=== PATIENT | male | born 1995 | race Caucasian/White ===

== ENCOUNTER 2019-10-11 11:18 | Emergency (ER) | payer BC ==
[2019-10-11 12:02] LABS: RAPID GROUP A STREP NEGATIVE (NEGATIVE)
== END 2019-10-11 12:51 | disposition home or self-care (01) ==
LOC: EDH 11:18
DX: J06.9 Acute upper respiratory infection, unspecified (principal); Z88.5 Allergy status to narcotic agent
CPT/HCPCS: 87804; 87880